=== PATIENT | female | born 1935 | race Caucasian/White ===

== ENCOUNTER 2017-01-16 16:13 | Emergency (ER) | payer OTHER, MEDICAID ==
[~2017-01-16] VITALS: Ht 157.5 cm; Wt 82.0 kg
[~2017-01-16 16:13] MED LIST: ACET500C4 PO; ASCO500 PO; ATOR20TA86 PO; BENGAY TP; CILO2.5OS OD; CINN500C4 PO; DEXT1DRO OU; DICL1OS OD; DONE10TA PO; FERR-89 PO; FLUT220HFA IH; INSLAN SQ; INSNOV SQ; LOSA25TA21 PO; MEMA5 PO; METF500T4 PO; OS500 PO; PROP10DR4 OS; SERT100T12 PO; SODI44SP18 NS; VITAD1000 PO; WARF3TAB29 PO; [UNRECOGNIZED DRUG - CODE] OU
[2017-01-16 16:36] LABS: GLUCOSE,POINT OF CARE 176 MG/DL (70-110)
[2017-01-16 17:30] LABS: BASOPHILS # (AUTO) 0.02 K/uL (0.00-0.20); BASOPHILS % (AUTO) 0.2 % (0.0-2.0); EOSINOPHILS # (AUTO) 0.13 K/uL (0.00-0.70); HEMATOCRIT 40.4 % (36-46); HEMOGLOBIN 13.1 g/dL (12.0-16.0); LYMPHOCYTES # (AUTO) 1.8 K/uL (1.0-4.8); MEAN CORPUSCULAR HEMOGLOBIN 28.4 pg (26.0-34.0); MEAN CORPUSCULAR HGB CONC 32.3 G/dL (31.0-37.0); MEAN CORPUSCULAR VOLUME 88 fL (80-100); MONOCYTES # (AUTO) 0.6 K/uL (0.1-1.0); NEUTROPHILS # (AUTO) 4.4 K/uL (1.8-7.7); NEUTROPHILS % (AUTO) 62.9 % (40.0-70.0); PLATELET COUNT (AUTO) 211 K/uL (150-450); RED CELL DISTRIBUTION WIDTH 15.4 % (11.5-14.5); WHITE BLOOD COUNT (AUTO) 6.9 K/uL (4.5-11.0)
[2017-01-16 17:39] LABS: ANION GAP 6 mmol/L (8-16); CALCIUM, TOTAL 8.7 mg/dL (8.8-10.5); CARBON DIOXIDE 29 mmol/L (22-29); CHLORIDE 102 mmol/L (98-107); CREATININE 0.95 mg/dL (0.60-1.30); GLOMERULAR FILTR. RATE CALC 57 mL/min (>60); POTASSIUM 4.3 mmol/L (3.5-5.1); SODIUM SERUM 137 mmol/L (136-145); UREA NITROGEN, BLOOD 17 mg/dL (7-18)
[2017-01-16] MEDS ORDERED: MECLIZINE HCL 25 MG TABLET PO ONE (17:45)
[2017-01-16 17:57] LABS: B-TYPE NATRIURETIC PEPTIDE 102 pg/mL (0-100)
[2017-01-16 18:04] LABS: ALANINE AMINOTRANSFERASE 41 U/L (12-78); ALBUMIN 2.9 g/dL (3.4-5.0); ASPARTATE AMINOTRANSFERASE 46 U/L (15-37); BILIRUBIN,TOTAL 0.3 mg/dL (0.1-1.0); CREATINE KINASE, TOTAL 76 U/L (26-192); TOTAL PROTEIN, SERUM 7.3 g/dL (6.4-8.2)
[2017-01-16 18:05] LABS: CREATINE KINASE MB < 0.5 ng/mL (0-5)
[2017-01-16 18:53] LABS: APPEARANCE,URINE CLEAR (CLEAR); GLUCOSE, URINE (UA) 100 mg/dL (NEGATIVE); KETONES,URINE NEGATIVE (NEGATIVE); LEUKOCYTE ESTERASE ,URINE TRACE (NEGATIVE); OCCULT BLOOD,URINE NEGATIVE (NEGATIVE); PH,URINE 5.5 (5.0-8.0); PROTEIN,URINE POS 1+ (NEGATIVE)
[2017-01-16 18:54] LABS: ADD UA MICROSCOPIC YES
[2017-01-16 19:02] LABS: COARSE GRANULAR CASTS,URINE 0-2 /LPF (None Seen)
[2017-01-16 19:03] LABS: RBC,URINE 0-2 /HPF (0-2); SQUAMOUS EPITHELIAL CELL,UR Rare /LPF (None Seen)
[2017-01-16 20:53] VITALS: BP 133/84
== END 2017-01-16 21:23 | disposition home or self-care (01) ==
LOC: EMS 16:13
DX: I48.91 Unspecified atrial fibrillation (principal); H81.393 Other peripheral vertigo, bilateral; R06.02 Shortness of breath; E11.9 Type 2 diabetes mellitus without complications; I10 Essential (primary) hypertension; Z79.4 Long term (current) use of insulin
CPT/HCPCS: 82962; 93005; 99285